=== PATIENT | female | born 1970 | race Two or more races ===

== ENCOUNTER 2020-04-09 06:00 | Outpatient (CLI) | payer OTHER ==
[~2020-04-09] VITALS: Ht 162.6 cm; Wt 88.9 kg
[2020-04-09] MEDS ORDERED: SINGULAIR4 MG PO (12:43)
[2020-04-09] MEDS ORDERED: CLARITIN5 MG PO (12:44)
[2020-04-09] MEDS ORDERED: [UNRECOGNIZED DRUG - OTHER] (12:44)
== END 2020-04-09 06:05 | disposition home or self-care (01) ==
LOC: LAB 06:00 → O/R 04-14 08:45 → EDSTATUS 04-14 08:45 → OB/GYN 04-14 08:45
PROVIDERS: ATTEND Obstetrics & Gynecology
DX: N83.299 Other ovarian cyst, unspecified side (principal); Z20.828 Contact with and (suspected) exposure to other viral communicable diseases; Z01.810 Encounter for preprocedural cardiovascular examination; Z01.812 Encounter for preprocedural laboratory examination; Z01.811 Encounter for preprocedural respiratory examination